=== PATIENT | female | born 1965 | race African-American/Black ===

== ENCOUNTER 2018-11-11 08:51 | Inpatient (IN) | payer OTHER ==
[~2018-11-11] VITALS: Ht 170.2 cm; Wt 104.3 kg
[~2018-11-11 08:51] MED LIST: ACETAMINOPHEN 1000 MG/100 ML 100 ML IV ONE; BIOTIN2500 MCG PO; BUPIVACAINE 0.25% 30ML SDV INJ ONE; FLECTOR1 EACH; LIDOCAINE HCL (LTA) 4 ML SOLN ONE; LISINOPRIL-HCT1 EACH PO; PREDNISONE10 MG PO; SCOPOLAMINE 1.5 MG PATCH ONE; VITAMIN C500 M1 PO
[2018-11-11] MEDS ORDERED: BUPIVACAINE 0.25% 30ML SDV INJ ONE (08:56)
--- OUTSIDE RECORDS SUMMARY | 2018-11-11 08:56 | XMS REPORT ---
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 Allergies, Adverse Reactions, Alerts This patient has no known allergies or adverse reactions. Medications This patient has no known medications. Encounters Start Date/Time End Date/Time Encounter Type Admission Type Attending [facility] Care Facility Care Department Encounter ID 2016-11-27 09:28:01 2016-11-27 09:28:01 Outpatient [facility] [id number] 2016-11-27 00:00:00 2016-11-27 00:00:00 Outpatient [facility] [id number] 2016-11-25 22:45:04 2016-11-25 22:45:04 Emergency [facility] [id number] 2016-11-25 22:32:51 2016-11-25 22:32:51 Emergency [facility] [id number]
[2018-11-11] MEDS ORDERED: SUGAMMADEX SODIUM 200 MG/2 ML VIAL IV ONE (10:28)
[2018-11-11] MEDS ORDERED: SCOPOLAMINE 1.5 MG PATCH TOP SCH (10:45)
[2018-11-11] MEDS ORDERED: MORPHINE SULFATE 2 MG/ML SYR 1ML IV PRN (10:45)
[2018-11-11] MEDS ORDERED: FENTANYL CITRATE/PF 100MCG/2 ML INJ ONE ×2 (11:00→18:26)
[2018-11-11] MEDS ORDERED: HYDRALAZINE HCL 20 MG/ML VIAL ONE (11:34)
[2018-11-11] MEDS ORDERED: MORPHINE SULFATE INJ 4 MG/ML INJ 1ML ONE (11:43)
[2018-11-11] MEDS ORDERED: HYDROMORPHONE 2MG/ML 2 MG/ML ML ONE (12:09)
[2018-11-11 12:45] VITALS: BP 141/67
--- NOTE | 2018-11-11 13:00 | NUR ---
received to rm sleepy easily awakens, denies pain at this time , ivf infusing to r fa 20g no ss of infiltration noted, oriented to rm updated on poc voiced understanding, scd's applied, call light in reach will continue to monitor
[2018-11-11] MEDS: SODIUM CHLORIDE 0.9% 1000ML 1,000 ML IV SCH ×3 (13:35→19:42)
[2018-11-11] MEDS: MORPHINE SULFATE INJ 4 MG/ML INJ 1ML IV PRN ×3 (15:03→23:13)
[2018-11-11] MEDS: ONDANSETRON HCL INJ 2MG/ML 2ML 2 MG/ML VIAL IV PRN ×2 (15:03→23:14)
[2018-11-11 15:12] VITALS: BP 141/67
[2018-11-11] MEDS ORDERED: DICLOFENAC SODI75 MG PO (16:29)
[2018-11-11] MEDS ORDERED: OMEPRAZOLE40 MG PO (16:29)
[2018-11-11 16:51] VITALS: BP 137/76
--- NOTE | 2018-11-11 17:16 | Operative Report ---
DATE OF PROCEDURE: 11/11/2018 SURGEON: Herbie Prieto MD PREOPERATIVE DIAGNOSES: 1. Morbid obesity, BMI 37. 2. Hypertension. 3. Obstructive sleep apnea. 4. Rheumatoid arthritis. POSTOPERATIVE DIAGNOSES: 1. Morbid obesity, BMI 37. 2. Hypertension. 3. Obstructive sleep apnea. 4. Rheumatoid arthritis. PREOPERATIVE INDICATIONS: Treat disease, prevent complications related to comorbid conditions of obesity. PROCEDURE: Laparoscopic vertical sleeve gastrectomy. ANESTHESIA: General. ACTIVITIES COUNSELOR: Hardy Haley, behavioral health assistant (needed due to complexity of case). FLUIDS: 500 mL of crystalloid. ESTIMATED BLOOD LOSS: 15 mL. DRAINS: None. COMPLICATIONS: None. SPECIMENS: Partial stomach. GRAFTS: None. FINDINGS: 1. Normal upper GI anatomy. 2. Negative intraoperative EGD leak test. PROCEDURE IN DETAIL: The patient was brought to the operating room and was intubated under general endotracheal anesthesia. She was positioned supine and both arms abducted and all pressure points were appropriately padded. She was sterilely prepped and draped in the usual fashion. A preprocedure pause was performed identifying the patient, use of perioperative antibiotics, intended procedure, and staff surgeon. Access was gained via a 5 mm left subcostal incision using a Veress needle. Insufflation ensued. Four additional trocars were placed. A liver retractor was placed. The greater curvature of the stomach was mobilized using [place] LigaSure device beginning about 4 cm proximal to the pyloric valve up to the left alaina of the diaphragm. An adult-sized endoscope was placed along the lesser curvature of the stomach to be used as a Bougie. The greater curvature of the stomach was resected with five firings of a 60 mm Endo RONNIE purple load Covidien stapling device. The specimen was removed to the right periumbilical port site. The port site was closed with 0 Vicryl suture using Rogers-Rere technique in a [id number] fashion. An intraoperative EGD leak test was performed. No leaks were identified. We then verified hemostasis, removed the liver retractor, desufflated the abdomen and removed the trocars. Incision sites were closed with 4-0 Monocryl suture in subcuticular fashion. Dermabond dressings were applied, 0.25% Bupivacaine was used both at the preperitoneal and incisional sites. All surgical sponges and instrument counts were correct. The patient tolerated the procedure well. Type of wound is type 2, clean and contaminant. MD JACOB Kowalski/DANIELAL /[id number]
--- NOTE | 2018-11-11 18:00 | NUR ---
SPOKE WITH DR PARIKH, FOR CONFORMATION OF ADMISSION, NO NEW ORDERS AT THIS
[2018-11-11] MEDS ORDERED: EPHEDRINE SULFATE INJ 50 MG/10 ML SYR ONE (18:26)
[2018-11-11] MEDS ORDERED: ACETAMINOPHEN 1000 MG/100 ML IV ONE (18:26)
[2018-11-11] MEDS ORDERED: ONDANSETRON HCL INJ 2MG/ML 2ML 2 MG/ML VIAL ONE (18:26)
[2018-11-11] MEDS ORDERED: LIDOCAINE HCL 2% JELLY 5 ML TUBE ONE (18:26)
[2018-11-11] MEDS ORDERED: MIDAZOLAM HCL 2 MG/2 ML VIAL ONE (18:26)
[2018-11-11] MEDS ORDERED: LIDOCAINE HCL 2% LOCAL INJ 5 ML SDV VIAL INJ ONE (18:26)
[2018-11-11] MEDS ORDERED: EYE LUBRICANT OPTH OINT 3.5GM TUBE OP ONE (18:26)
[2018-11-11] MEDS ORDERED: PROPOFOL IV EMULSION 10 MG/ML 20 ML VIAL ONE (18:26)
[2018-11-11] MEDS ORDERED: SEVOFLURANE INHAL SOLN 250 ML PEN BTL ONE (18:26)
[2018-11-11] MEDS ORDERED: DEXAMETHASONE SOD PHOS INJ 4 MG/ML VIAL ONE (18:26)
[2018-11-11] MEDS ORDERED: ROCURONIUM BROMIDE 10 MG/ML 5ML VIAL ONE (18:26)
[2018-11-11 19:30] VITALS: BP 137/76
[2018-11-11 20:00] VITALS: BP 147/74
[2018-11-11] MEDS: ENOXAPARIN SOD INJ 40 MG/0.4 ML SYR SC SCH (20:06)
[2018-11-12] VITALS: BP 153/71
[2018-11-12] MEDS: SODIUM CHLORIDE 0.9% 1000ML 1,000 ML IV SCH ×2 (03:16→10:37)
[2018-11-12 04:00] VITALS: BP 144/70
[2018-11-12] MEDS: ONDANSETRON HCL INJ 2MG/ML 2ML 2 MG/ML VIAL IV PRN ×2 (04:40→12:04)
[2018-11-12] MEDS: MORPHINE SULFATE INJ 4 MG/ML INJ 1ML IV PRN ×2 (04:41→12:04)
[2018-11-12 06:48] LABS: BASOPHILS % 0.1 % (0.0-1.0); EOSINOPHILS % 0.1 % (0.0-6.0); HEMATOCRIT 33.6 % (34.2-44.1); HEMOGLOBIN 11.2 g/dL (12.0-16.0); LYMPHOCYTES % 25.8 % (18.0-39.1); MEAN CORPUSCULAR HEMOGLOBIN 25.9 pg (28-32); MEAN CORPUSCULAR HGB CONC 33.3 g/dL (31-35); MEAN CORPUSCULAR VOLUME 77.8 fL (81-99); MONOCYTES # (AUTO) 0.8 (0.2-0.8); MONOCYTES % 6.9 % (4.4-11.3); NEUTROPHILS # (AUTO) 7.6 (2.1-6.9); NEUTROPHILS % 66.7 % (38.7-80.0); PLATELET COUNT 246 x10e3/uL (140-360); RED BLOOD COUNT 4.32 x10e6/uL (3.6-5.1); RED CELL DISTRIBUTION WIDTH 15.1 % (11.7-14.4)
[2018-11-12] MEDS ORDERED: HYDROCODONE/APAP 7.5MG-325MG 1 EA TAB PO PRN (07:00)
[2018-11-12 07:09] LABS: ALANINE AMINOTRANSFERASE 26 IU/L (0-55); ALBUMIN 3.4 g/dL (3.5-5.0); ALBUMIN/GLOBULIN RATIO 0.9 (0.8-2.0); ALKALINE PHOSPHATASE 64 IU/L (40-150); ANION GAP 13.8 mmol/L (8-16); BLOOD UREA NITROGEN 11 mg/dL (7-26); BUN/CREATININE RATIO 15 (6-25); CALCIUM 9.2 mg/dL (8.4-10.2); CARBON DIOXIDE 21 mmol/L (22-29); CHLORIDE 99 mmol/L (98-107); CREATININE, SERUM 0.72 mg/dL (0.57-1.11); EST GLOMERULAR FILTRATION RATE > 60 ML/MIN (60-); GLUCOSE 83 mg/dL (74-118); MAGNESIUM 1.7 MG/DL (1.3-2.1); PHOSPHORUS 3.1 MG/DL (2.3-4.7); POTASSIUM 3.8 mmol/L (3.5-5.1); SODIUM 130 mmol/L (136-145)
--- NOTE | 2018-11-12 07:52 | NUR ---
PROGRESS NOTE S: No complaints O: AF, VSS; labs reviewed Gen- no distress Abd- soft, incisions clean, dry and intact A/P: POD 1, s/p lap sleeve gastrectomy for morbid obesity -Clears, ambulate, IS, OOB to chair -DC home today -F/u with me next week -Instructions given
[2018-11-12] MEDS ORDERED: PREDNISONE 10 MG TAB PO SCH (09:00)
[2018-11-12] MEDS ORDERED: LISINOPRIL 20 MG TAB PO SCH (09:00)
[2018-11-12] MEDS ORDERED: HYDROCHLOROTHIAZIDE 25 MG TAB PO SCH (09:00)
[2018-11-12 09:21] VITALS: BP 153/73
--- NOTE | 2018-11-12 09:39 | History and Physical ---
This is a history and physical and discharge summary. HISTORY OF PRESENT ILLNESS: This is a 53-year-old woman, who was admitted with a diagnosis of obesity complicating her underlying hypertension. On Sunday, November 11, 2018, she underwent successful laparoscopic sleeve gastrectomy. She has underlying history of hypertension and scleroderma. The patient voiced no complaints. The patient denies any nausea or vomiting. The patient states her pain is well controlled. The patient states that when she did receive intravenous morphine, she did become nauseous though. REVIEW OF SYSTEMS: GENERAL: Weight has been stable. No fever or chills. HEENT: No headaches. No vision changes. CARDIOVASCULAR/RESPIRATORY: No chest pain or shortness of breath. No cough. GI: No nausea, vomiting, or constipation. : No dysuria, hematuria, or incontinence. Carbajal catheter has been removed. NEUROMUSCULAR: No limb weakness or numbness. PAST MEDICAL HISTORY: 1. Scleroderma. 2. Hypertension. 3. Obesity complicating underlying hypertension. PAST SURGICAL HISTORY: 1. section 3 times. 2. Laparoscopic sleeve gastrectomy yesterday. FAMILY HISTORY: Multiple family members with hypertension. ALLERGIES: NO KNOWN DRUG ALLERGIES. MEDICATIONS: 1. Prednisone 10 mg daily. 2. Vitamin C 500 mg daily. 3. Biotin 10,000 mcg daily. 4. Diclofenac 75 mg b.i.d. 5. Lisinopril/hydrochlorothiazide 10 mg/12.5 mg one p.o. daily. 6. Omeprazole 20 mg daily. PHYSICAL EXAMINATION: GENERAL: She is awake, alert, fluent, very pleasant and cooperative with exam. VITAL SIGNS: Height 5 feet 7 inches, weighs 230 pounds, BMI 36. Blood pressure is 144/70, pulse 76, respiratory rate is 20, oxygen saturation 93% on room air, and temperature 98.3. INTEGUMENT: Skin is warm and dry. No pallor, jaundice, diaphoresis. HEENT: Anicteric sclerae with moist mucous membranes. NECK: Supple. No evidence of jugular venous distention. CARDIOVASCULAR: Regular rate and rhythm with an S4 gallop. LUNGS: No rales. No rhonchi or wheezes. ABDOMEN: Soft. She does have bowel sounds. The laparoscopic incisions are clean, dry, and intact. EXTREMITIES: No edema or deformity. She is currently wearing sequential compression devices. NEUROLOGIC: Intact. DIAGNOSES: 1. Status post laparoscopic sleeve gastrectomy. 2. Obesity, BMI 36 complicating underlying hypertension. 3. Hypertensive heart disease. 4. Scleroderma. PLAN: 1. Resume oral prednisone. 2. Continue home medications. 3. Start clear liquid diet. 4. The patient will be discharged home later today. 5. The patient to follow up with Dr. Prieto in 1 week and with her primary care physician in 2 weeks. MD DEANDRE Chavez/LEANDRO /[id number]
[2018-11-12] MEDS: ENOXAPARIN SOD INJ 40 MG/0.4 ML SYR SC SCH (09:45)
[2018-11-12 10:35] VITALS: BP 153/73
[2018-11-12 12:38] VITALS: BP 154/73
[2018-11-12] MEDS ORDERED: TYLENOL WITH C1 EACH PO (14:16)
[2018-11-12] MEDS ORDERED: ZOFRAN4 MG PO (14:17)
--- NOTE | 2018-11-12 14:29 | NUR ---
Nutrition Screen Note RD Recommendation for Physician: - ADAT per MD - Diet education provided 11/12 Plan of Care: RD following, monitoring for tolerance and adequacy Nutrition reason for involvement: MD Consult- post-op bariatric diet education Primary Diagnose(s): elective laparoscopic gastric sleeve surgery PMH: HTN, obesity, scleroderma Ht:67 in Wt: 230 lb BMI: 36 kg/m2 IBW: [address] Assessment: (11/12) 53 YOF admitted for elective gastric bypass surgery. Pt POD#1, seen today per MD consult for diet education. Pt educated on progression from clear liquids to full liquids to pureed diet. Pt educated on recommended supplements, MVI and minerals, dumping syndrome, and fluid goals. All pt and pt's family's questions answered at time of visit. Handouts provided. Chart reviewed. Labs and meds reviewed. Will monitor and continue to follow. Current Diet: Clear liquids Malnutrition Evaluation (11/12/18) The patient does not meet criteria for a specified degree of malnutrition at this time. Will re-evaluate at follow-up as appropriate. Diet Education Needs Assessment: Diet education indicated, pt receptive. Learner(s): pt, pt's sister Barriers: none Cultural/Language Modifications: none Readiness: ready Method: handouts, discussion Topics: bariatric diet progression Understanding/Compliance: good Nutrition Care Level: Low Signed: Lis Presley RD, LD, [facility]
--- NOTE | 2018-11-12 14:54 | NUR ---
DISCHARGE INSTRUCTIONS REVIEWED, PT VERBALIZED UNDERSTANDING, WHEELED OFF UNIT VIA WC, NO CHANGE IN CONDITION, FAMILY AT SIDE
== END 2018-11-12 14:49 | disposition home or self-care (01) | DRG 620 ==
LOC: OR 08:51 → PACU V 11:12 → MED/SURG 13:11
PROVIDERS: ADMIT Internal Medicine; ATTEND Internal Medicine
PROC: 0DB64Z3 Excision of Stomach, Percutaneous Endoscopic Approach, Vertical (ICD-10-PCS; principal; 2018-11-11 12:00)
DX: E66.01 Morbid (severe) obesity due to excess calories (principal); K90.9 Intestinal malabsorption, unspecified; I11.9 Hypertensive heart disease without heart failure; M34.9 Systemic sclerosis, unspecified; G47.33 Obstructive sleep apnea (adult) (pediatric); M06.9 Rheumatoid arthritis, unspecified; Z68.36 Body mass index [BMI] 36.0-36.9, adult; Z01.812 Encounter for preprocedural laboratory examination
CPT/HCPCS: 36415; 43235; 80053; 81025; 83735; 84100; 85025; J0360; J1100; J1650; J2001; J2250; J2270; J2405; J7030; J7512